=== PATIENT | female | born 1995 | race Two or more races ===

== ENCOUNTER 2017-12-05 09:11 | Emergency (ER) | payer OTHER ==
[2017-12-05 09:22] VITALS: BP 126/76
--- NOTE | 2017-12-05 10:08 | RAD ---
INDICATION: Foot and ankle pain after a trip and fall injury. Relevant history notes fracture of the proximal right fifth metatarsal. COMPARISON: Foot radiograph July 13, 2015 TECHNIQUE: 3 views of the right ankle and 3 views of the right foot were obtained. FINDINGS: Similar to the most recent foot radiograph dated July 13, 2015, there is a horizontal oriented lucency at the proximal right fifth metatarsal. The remaining visualized bones are intact and appropriately aligned. IMPRESSION: POSSIBLE NONDISPLACED REPEAT FRACTURE AT THE PROXIMAL RIGHT FIFTH METATARSAL.
--- NOTE | 2017-12-05 17:19 | UC ---
Kevin Palacio Stephanie, scribed for Td Sherman MD on 12/05/17 at 0937 . Lower Extremity/Ankle HPI - HPI Summary HPI Summary: The pt is a 22 y/o F presenting to with c/o R ankle pain that occurred yesterday. The pt states she tripped and fell. The pt arrives to on crutches. The pt has hx of metatarsal fracture and her current pain is in the area of the past fracture. Her pain is rated as a 4 in severity. The pt states she can bear weight however, it is painful. - History of Current Complaint Chief Complaint: UCLowerExtremity Stated Complaint: FOOT INJURY Time Seen by Provider: 12/05/17 09:26 Hx Obtained From: Patient Hx Last Menstrual Period: 11/23/17 Onset/Duration: Sudden Onset, Lasting Days - 1, Still Present Severity Currently: Mild Pain Intensity: 3 Pain Scale Used: 0-10 Numeric Aggravating Factor(s): Standing, Ambulation Alleviating Factor(s): Rest Able to Bear Weight: Yes - painful - Allergies/Home Medications Allergies/Adverse Reactions: Allergies Allergy/AdvReac Type Severity Reaction Status Date / Time No Known Allergies Allergy Verified 12/05/17 09:22 PMH/Surg Hx/FS Hx/Imm Hx Previously Healthy: Yes - metatarsal fracture in R foot - Surgical History Surgical History: None - Family History Known Family History: Positive: Unknown - The pt denies all fhx. - Social History Occupation: Student Lives: With Family Alcohol Use: None Substance Use Type: None Smoking Status (MU): Never Smoked Tobacco Have You Smoked in the Last Year: No Review of Systems Constitutional: Negative Skin: Negative Eyes: Negative ENT: Negative Respiratory: Negative Cardiovascular: Negative Gastrointestinal: Negative Genitourinary: Negative Motor: Negative Neurovascular: Negative Musculoskeletal: Other: - pain in R ankle and foot Neurological: Negative Psychological: Negative Is Patient Immunocompromised?: No All Other Systems Reviewed And Are Negative: Yes Physical Exam - Summary Physical Exam Summary: VITAL SIGNS: Reviewed. GENERAL: Patient is a well developed and nourished F who is lying comfortable in the stretcher. Patient is not in any acute respiratory distress. HEAD AND FACE: Normocephalic EYES: PERRLA, EOMI x 2. EARS: Hearing grossly intact. MOUTH: Oropharynx within normal limits. NECK: Supple, trachea is midline, no adenopathy, no JVD, no carotid bruit. CHEST: Symmetric, no tenderness at palpation LUNGS: Clear to auscultation bilaterally. No wheezing or crackles. CVS: Regular rate and rhythm, S1 and S2 present, no murmurs or gallops appreciated. ABDOMEN: Soft, non-tender. Bowel sounds are normal. No abdominal abnormal pulsations. EXTREMITIES: Full ROM in all major joints, no edema, no cyanosis or clubbing. Point tenderness lateral aspect of R foot, no deformity, no hematoma NEURO: Alert and oriented x 3. No acute neurological deficits. Speech is normal and follows commands. Neurovascular exam intact SKIN: Dry and warm Triage Information Reviewed: Yes Vital Signs: Initial Vital Signs Temp 98 F 12/05/17 09:19 Pulse 90 12/05/17 09:19 Resp 17 12/05/17 09:19 BP 126/76 12/05/17 09:19 Pulse Ox 100 12/05/17 09:19 Vital Signs Reviewed: Yes Diagnostics - Radiology Foot XRay Xray Interpretation: Positive (See Comments) Radiology Interpretation Completed By: Radiologist - Possible nondisplaced repeat fracture at the proximal right fifth metatarsal. Ankle XRay Xray Interpretation: Positive (See Comments) Radiology Interpretation Completed By: Radiologist - Possible nondisplaced repeat fracture at the proximal right fifth metatarsal. Lower Extremity Course/Dx - Course Course Of Treatment: The pt is a 22 y/o F presenting to with c/o R ankle pain that occurred yesterday. The pt states she tripped and fell. The pt arrives to on crutches. The pt has hx of metatarsal fracture and her current pain is in the area of the past fracture. Her pain is rated as a 4 in severity. The pt states she can bear weight however, it is painful. X rays shows a 5th metatarsal fractuer. Patient placed in a UC boot. Patient with clutches. Patient preffers boot and declined a posterior splint. She was recommended no weight bearing until seen by orthopedics. I discussed all the findings and test results with the patient. Patient was instructed to return to the urgent care or go to ER immediately if any of the symptoms return or worsens. Plan of care was discussed with the patient, and patient understands and agrees. All questions were answered to patient satisfaction. There were no further complaints or concerns. ED physician advised the pt to follow up with orthopedics in 2-3 days. - Differential Dx/Diagnosis Differential Diagnosis/HQI/PQRI: Bursitis, Contusion, Dislocation, Fracture ( Closed), Sprain, Strain Provider Diagnoses: 5th Metatarsal fracture Discharge - Sign-Out/Discharge Documenting (check all that apply): Discharge - Discharge Plan Condition: Stable Disposition: HOME Patient Education Materials: Foot Fracture in Adults (ED) Referrals: [facility] – [place] [facility] REFERRAL [Outside] Rishi Naik MD [Medical Doctor] - Additional Instructions: RETURN TO URGENT CARE FOR ANY WORSENING OR NEW SYMPTOMS. - Billing Disposition and Condition Condition: STABLE Disposition: HOME The documentation as recorded by the Kevin ji Stephanie accurately reflects the service I personally performed and the decisions made by Lane perez Walter, MD.
== END 2017-12-05 10:34 | disposition home or self-care (01) ==
LOC: UCEAST 09:11
DX: S99.921A Unspecified injury of right foot, initial encounter (principal); W01.0XXA Fall on same level from slipping, tripping and stumbling without subsequent striking against object, initial encounter; Y93.9 Activity, unspecified; Y92.9 Unspecified place or not applicable; Z87.81 Personal history of (healed) traumatic fracture
CPT/HCPCS: 99212; G0463